=== PATIENT | female | born 1985 | race Caucasian/White ===

== ENCOUNTER → 2018-12-13 | Outpatient (REF) | payer BC ==
[2018-12-13 11:30] LABS: BASO # 0.1 10^3/uL (0.0-0.2); EOS # 0.1 10^3/uL (0.0-0.50); EOS % 1.7 % (0.0-3.0); HEMATOCRIT 42.6 % (36.0-47.0); HEMOGLOBIN 13.9 g/dl (12.0-15.5); LYMPH # 1.3 10^3/uL (1.5-4.5); LYMPH % 24.3 % (24.0-44.0); MEAN CORPUSCULAR HEMOGLOBIN 29.5 pg (27.0-33.0); MEAN CORPUSCULAR HGB CONC 32.6 g/dl (32.0-36.5); MEAN CORPUSCULAR VOLUME 90.4 fl (80.0-96.0); MONO # 0.4 10^3/uL (0.0-0.8); MONO % 8.3 % (0.0-5.0); NEUTROPHILS # 3.3 10^3/uL (1.8-7.7); NEUTROPHILS % 64.3 % (36.0-66.0); PLATELET COUNT, AUTOMATED 204 10^3/uL (150-450); RED BLOOD COUNT 4.71 10^6/uL (4.00-5.40); WHITE BLOOD COUNT 5.2 10^3/uL (4.0-10.0)
== END ==
LOC: M SFHCCLAY 08:05
PROVIDERS: ATTEND Family Medicine
DX: R53.83 Other fatigue (principal); Z86.2 Personal history of diseases of the blood and blood-forming organs and certain disorders involving the immune mechanism

== ENCOUNTER → 2019-06-21 | Outpatient (CLI) | payer BC ==
--- NOTE | 2019-06-21 12:44 | REP ---
Right wrist four views : There is no fracture or dislocation. Mineralization and joint spaces are normal. There are no calcifications or foreign bodies. Impression: Negative right wrist . Electronically Signed by Lawson Robles MD 06/21/2019 12:35 P
== END ==
LOC: M LRY 12:10
PROVIDERS: ATTEND Physician Assistant
DX: M25.531 Pain in right wrist (principal)

== ENCOUNTER → 2020-10-15 | Outpatient (REF) | payer OTHER ==
[2020-10-15 16:21] LABS: EOS # 0.1 10^3/uL (0.0-0.5); EOS % 1.7 % (0.0-3.0); HEMATOCRIT 41.3 % (36.0-47.0); HEMOGLOBIN 13.4 g/dl (12.0-15.5); LYMPH # 1.3 10^3/uL (1.5-5.0); LYMPH % 31.9 % (24.0-44.0); MEAN CORPUSCULAR HEMOGLOBIN 29.1 pg (27.0-33.0); MEAN CORPUSCULAR HGB CONC 32.4 g/dl (32.0-36.5); MEAN CORPUSCULAR VOLUME 89.6 fl (80.0-96.0); MONO # 0.4 10^3/uL (0.0-0.8); MONO % 8.6 % (2.0-8.0); NEUTROPHILS # 2.4 10^3/uL (1.5-8.5); NEUTROPHILS % 56.6 % (36.0-66.0); PLATELET COUNT, AUTOMATED 213 10^3/uL (150-450); RED BLOOD COUNT 4.61 10^6/uL (4.00-5.40); WHITE BLOOD COUNT 4.2 10^3/uL (4.0-10.0)
[2020-10-15 16:51] LABS: ALBUMIN 4.2 GM/DL (3.2-5.2); ALT/SGPT 23 U/L (12-78); BILIRUBIN,TOTAL 0.3 MG/DL (0.2-1.0); BLOOD UREA NITROGEN 11 MG/DL (7-18); CALCIUM LEVEL 8.9 MG/DL (8.5-10.1); CARBON DIOXIDE LEVEL 29 MEQ/L (21-32); CHLORIDE LEVEL 107 MEQ/L (98-107); CHOLESTEROL LEVEL 181 MG/DL (<200); CHOLESTEROL RISK RATIO 2.262 (<5); CREATININE FOR GFR 0.74 MG/DL (0.55-1.30); FREE T4 0.93 NG/DL (0.76-1.46); GLOMERULAR FILTRATION RATE > 60.0 (>60); GLUCOSE, FASTING 84 MG/DL (70-100); HDL CHOLESTEROL 80 MG/DL (>40); IRON (FE) 86 UG/DL (50-170); LDL CHOLESTEROL 86 MG/DL (<100); NON-HDL-C 101 MG/DL; PERCENT SATURATION 27.2 % (13.2-45.0); SODIUM LEVEL 140 MEQ/L (136-145); TOTAL IRON BINDING CAPACITY 316 UG/DL (250-450); TOTAL PROTEIN 7.4 GM/DL (6.4-8.2); TRIGLYCERIDES LEVEL 77 MG/DL (<150)
[2020-10-15 17:14] LABS: HEMOGLOBIN A1c 4.9 %
== END ==
LOC: M SFHCCLAY 11:11
PROVIDERS: ATTEND Family Medicine
DX: Z00.00 Encounter for general adult medical examination without abnormal findings (principal); Z82.3 Family history of stroke; Z13.220 Encounter for screening for lipoid disorders; Z83.3 Family history of diabetes mellitus; Z13.1 Encounter for screening for diabetes mellitus; R53.83 Other fatigue; L65.9 Nonscarring hair loss, unspecified

== ENCOUNTER → 2020-10-28 | Outpatient (REF) | payer OTHER | LOC: M SFHCWAGY 10:05 | PROVIDERS: ATTEND Nurse Practitioner Women's Health | DX: Z12.4 Encounter for screening for malignant neoplasm of cervix (principal) ==

== ENCOUNTER → 2020-11-14 | Outpatient (REF) | payer OTHER | LOC: M LAB REF 12:23 | PROVIDERS: ATTEND Otolaryngology | DX: L02.01 Cutaneous abscess of face (principal) ==

== ENCOUNTER → 2020-12-18 | Outpatient (REF) | payer OTHER | LOC: M SFHCCLAY 15:59 | PROVIDERS: ATTEND Family Medicine | DX: J02.9 Acute pharyngitis, unspecified (principal); R53.83 Other fatigue ==

== ENCOUNTER → 2020-12-30 | Outpatient (CLI) | payer OTHER ==
--- NOTE | 2020-12-31 04:27 | REP ---
INDICATION: DYSMENORRHEA, MENORRHAGIA WITH REGULAR CYCLE. COMPARISON: 08/10/2006 TECHNIQUE: Transabdominal pelvic ultrasound followed by transvaginal examination for better evaluation of the endometrium and adnexa with color Doppler evaluation of the ovaries. FINDINGS: Bladder is unremarkable and measures 12.8 x 8.0 x 10.8 cm. Heterogeneous anteverted uterus measures 10.8 x 5.6 x 7.1 cm. The endometrial complex measures 8 mm thickness and demonstrates nonspecific chronic calcifications up to 5 mm. Subtle early myomatous changes along the anterior margin of the uterus cannot be excluded.. Bilateral ovaries are normal in appearance and vascularity without evidence for torsion. Right ovary measures 4.2 x 2.2 x 3.3 cm; R I = 0.47. Left ovary measures 3.0 x 1.9 x 2.5 cm; R I = 0.58. No pelvic fluid or adnexal mass lesion. IMPRESSION: Questionable early vague myomatous changes to the uterus. <Electronically signed by Migue Peters > 12/31/20 0423
== END ==
LOC: EEVIPCON 12-06 15:30 → M WHC 15:29
PROVIDERS: ATTEND Nurse Practitioner Women's Health
DX: N94.6 Dysmenorrhea, unspecified (principal); N92.0 Excessive and frequent menstruation with regular cycle

== ENCOUNTER 2021-08-13 14:02 | Day surgery (SDC) | payer OTHER ==
[~2021-08-13] VITALS: Ht 154.9 cm; Wt 50.3 kg
[2021-08-13] MEDS ORDERED: ONDANSETRON 4MG/2ML VIAL As Ordered ONE (15:24)
[2021-08-13] MEDS ORDERED: LIDOCAINE 2% 100MG/5ML SDV (FOR ANES.) As Ordered ONE (15:24)
[2021-08-13] MEDS ORDERED: ROCURONIUM BROMIDE 50 MG/5 ML VIAL As Ordered ONE (15:24)
[2021-08-13] MEDS ORDERED: KETOROLAC 60MG 2ML VIAL As Ordered ONE (15:24)
[2021-08-13] MEDS ORDERED: fentaNYL 100 MCG/2 ML INJECTION (J3010) As Ordered ONE (15:24)
[2021-08-13] MEDS ORDERED: propofoL 200 MG/20 ML VIAL As Ordered ONE (15:24)
[2021-08-13] MEDS ORDERED: dexameTHASONE 4 MG/ML 1ML VIAL (J1100 PER 1MG) As Ordered ONE (15:24)
[2021-08-13] MEDS ORDERED: SUGAMMADEX SODIUM 500 MG/5 ML VIAL (BRIDION) As Ordered ONE (15:24)
[2021-08-13] MEDS ORDERED: ACETAMINOPHEN 1000MG 100ML IV BTL (OFIRMEV) (J0131 PER 10MG) As Ordered ONE (15:24)
[2021-08-13] MEDS ORDERED: MIDAZOLAM INJ 2MG/2ML VIAL (J2250 PER 1MG) As Ordered ONE (15:24)
[2021-08-13] MEDS ORDERED: LIDOCAINE 5% OINT 30GM TUBE As Ordered ONE (16:02)
[2021-08-13] MEDS ORDERED: ceFAZolin 2 GM/D5W 50 ML IV BAG (J0690 PER 500MG) As Ordered ONE (16:23)
[2021-08-13] MEDS ORDERED: BUPIVACAINE/EPIN 0.25% 30 ML VIAL As Ordered ONE (16:26)
[2021-08-13] MEDS ORDERED: fentaNYL 100 MCG/2 ML INJECTION (J3010) IV PRN (18:10)
[2021-08-13] MEDS ORDERED: oxyCODONE 5MG TAB PO PRN (18:10)
[2021-08-13] MEDS ORDERED: METOCLOPRAMIDE INJ 10MG/2ML VIAL (J2765 PER 1) IV PRN (18:10)
[2021-08-13] MEDS ORDERED: LR 1,000 ML IV SCH (18:10)
[2021-08-13] MEDS ORDERED: ONDANSETRON 4MG/2ML VIAL IV PRN (18:10)
[2021-08-13 18:45] VITALS: BP 131/89
== END 2021-08-13 18:51 | disposition home or self-care (01) ==
LOC: M SDC 14:02
PROVIDERS: ATTEND Orthopaedic Surgery Sports Medicine
DX: S52.021A Displaced fracture of olecranon process without intraarticular extension of right ulna, initial encounter for closed fracture (principal); W00.0XXA Fall on same level due to ice and snow, initial encounter; Y92.89 Other specified places as the place of occurrence of the external cause; Y93.89 Activity, other specified; Y99.8 Other external cause status; M41.9 Scoliosis, unspecified
CPT/HCPCS: 24685; 76000; J0131; J0690; J1100; J1885; J2250; J2405; J3010; U0002

== ENCOUNTER → 2021-08-26 | Outpatient (CLI) | payer OTHER, SELFPAY | LOC: M SOG 11:30 | PROVIDERS: ATTEND Orthopaedic Surgery Hand Surgery | DX: S52.021A Displaced fracture of olecranon process without intraarticular extension of right ulna, initial encounter for closed fracture (principal); X58.XXXA Exposure to other specified factors, initial encounter; Y92.89 Other specified places as the place of occurrence of the external cause ==

== ENCOUNTER → 2022-02-11 | Outpatient (CLI) | payer OTHER | LOC: M SOG 08:11 | PROVIDERS: ATTEND Orthopaedic Surgery | DX: M25.521 Pain in right elbow (principal) ==

== ENCOUNTER → 2022-02-23 | Outpatient (CLI) | payer BC | LOC: M CLY 15:36 | PROVIDERS: ATTEND Physician Assistant | DX: M50.321 Other cervical disc degeneration at C4-C5 level (principal); M50.322 Other cervical disc degeneration at C5-C6 level; M54.6 Pain in thoracic spine ==

== ENCOUNTER → 2022-04-22 | Outpatient (CLI) | payer OTHER | LOC: M PLAIMG 06:49 | PROVIDERS: ATTEND Orthopaedic Surgery | DX: M77.9 Enthesopathy, unspecified (principal) ==

== ENCOUNTER → 2023-05-24 | Outpatient (REF) | payer OTHER, BC ==
[2023-05-24 17:11] LABS: BASO % 0.9 % (0.0-1.0); EOS # 0.1 10^3/uL (0.0-0.5); EOS % 2.2 % (0.0-3.0); HEMATOCRIT 42.7 % (36.0-47.0); HEMOGLOBIN 14.2 g/dl (12.0-15.5); LYMPH # 1.3 10^3/uL (1.5-5.0); LYMPH % 29.8 % (24.0-44.0); MEAN CORPUSCULAR HEMOGLOBIN 29.6 pg (27.0-33.0); MEAN CORPUSCULAR HGB CONC 33.3 g/dl (32.0-36.5); MEAN CORPUSCULAR VOLUME 89.1 fl (80.0-96.0); MONO # 0.4 10^3/uL (0.0-0.8); MONO % 7.8 % (2.0-8.0); NEUTROPHILS # 2.6 10^3/uL (1.5-8.5); NEUTROPHILS % 58.9 % (36.0-66.0); PLATELET COUNT, AUTOMATED 251 10^3/uL (150-450); RED BLOOD COUNT 4.79 10^6/uL (4.00-5.40); WHITE BLOOD COUNT 4.5 10^3/uL (4.0-10.0)
[2023-05-24 17:17] LABS: IRON (FE) 124 UG/DL (50-170); PERCENT SATURATION 31.9 % (13.2-45.0); TOTAL IRON BINDING CAPACITY 389 UG/DL (250-425)
[2023-05-24 17:18] LABS: ALBUMIN 3.8 G/DL (3.2-5.2); ALKALINE PHOSPHATASE 42 U/L (46-116); ALT/SGPT 17 U/L (7.0-40); AST/SGOT 14 U/L (<34); BILIRUBIN,TOTAL 0.6 MG/DL (0.3-1.2); BLOOD UREA NITROGEN 16 MG/DL (9-23); CALCIUM LEVEL 8.9 MG/DL (8.5-10.1); CARBON DIOXIDE LEVEL 28 MMOL/L (20-31); CHLORIDE LEVEL 109 MMOL/L (98-107); CHOLESTEROL LEVEL 158 MG/DL (<200); GLOMERULAR FILTRATION RATE > 60.0 (>60); GLUCOSE, FASTING 87 MG/DL (60-100); HDL CHOLESTEROL 75.2 MG/DL (>40); LDL CHOLESTEROL 67.4 MG/DL (<100); NON-HDL-C 82.8 MG/DL; POTASSIUM SERUM 4.5 MMOL/L (3.5-5.1); SODIUM LEVEL 141 MMOL/L (136-145); TOTAL PROTEIN 6.8 G/DL (5.7-8.2); TRIGLYCERIDES LEVEL 77 MG/DL (<150)
[2023-05-24 17:19] LABS: FREE T4 0.92 NG/DL (0.89-1.76); THYROID STIMULATING HORMONE 1.161 uIU/ML (0.55-4.78)
[2023-05-24 17:20] LABS: FERRITIN 28.2 NG/ML (7.3-270.7)
== END ==
LOC: M SFHCCLAY 09:46
PROVIDERS: ATTEND Nurse Practitioner Family
DX: Z13.220 Encounter for screening for lipoid disorders (principal); F41.9 Anxiety disorder, unspecified; D50.9 Iron deficiency anemia, unspecified

== ENCOUNTER → 2023-06-22 | Outpatient (REF) | payer BC, OTHER | LOC: M SFHCCLAY 14:39 | PROVIDERS: ATTEND Nurse Practitioner Family | DX: R50.9 Fever, unspecified (principal); R19.7 Diarrhea, unspecified ==

== ENCOUNTER → 2023-10-14 | Outpatient (REF) | payer OTHER ==
[2023-10-14 11:43] LABS: BLOOD UREA NITROGEN 13 MG/DL (9-23); CALCIUM LEVEL 8.8 MG/DL (8.5-10.1); CARBON DIOXIDE LEVEL 28 MMOL/L (20-31); CHLORIDE LEVEL 107 MMOL/L (98-107); CREATININE FOR GFR 0.67 MG/DL (0.55-1.30); GLOMERULAR FILTRATION RATE > 60.0 (>58); GLUCOSE, FASTING 97 MG/DL (60-100); POTASSIUM SERUM 4.7 MMOL/L (3.5-5.1); SODIUM LEVEL 141 MMOL/L (136-145)
== END ==
LOC: M SFHCCLAY 08:42
PROVIDERS: ATTEND Nurse Practitioner Family
DX: R19.7 Diarrhea, unspecified (principal)

== ENCOUNTER → 2023-10-15 | Outpatient (REF) | payer OTHER | LOC: M SFHCCLAY 11:23 | PROVIDERS: ATTEND Nurse Practitioner Family | DX: R19.7 Diarrhea, unspecified (principal) ==

== ENCOUNTER → 2024-01-11 | Outpatient (CLI) | payer OTHER | LOC: M CLY 07:41 | PROVIDERS: ATTEND Nurse Practitioner Family | DX: M54.2 Cervicalgia (principal) ==

== ENCOUNTER → 2024-03-16 | Outpatient (CLI) | payer OTHER | LOC: M WHC 15:51 | PROVIDERS: ATTEND Nurse Practitioner Family | DX: Z12.31 Encounter for screening mammogram for malignant neoplasm of breast (principal) ==

== ENCOUNTER → 2024-03-30 | Outpatient (CLI) | payer OTHER ==
[~2024-03-30] MED LIST: GABA-1171 PO; LEXA1TAB2 PO; MELO15TA28 PO; TIZA10TA PO
== END ==
LOC: M WHC 09:59
PROVIDERS: ATTEND Nurse Practitioner Family
DX: R92.8 Other abnormal and inconclusive findings on diagnostic imaging of breast (principal)
CPT/HCPCS: 77065; G0279

== ENCOUNTER → 2024-04-14 | Day surgery (SDC) | payer OTHER ==
[~2024-04-14] VITALS: Ht 154.9 cm; Wt 57.2 kg
[~2024-04-14] MED LIST changes: +NS 1,000 ML IV ONE
== END | disposition home or self-care (01) ==
LOC: M OPP 06:59
PROVIDERS: ATTEND Internal Medicine Gastroenterology
DX: R19.4 Change in bowel habit (principal); Z53.8 Procedure and treatment not carried out for other reasons

== ENCOUNTER → 2024-04-25 | Outpatient (REF) | payer OTHER ==
[~2024-04-25] MED LIST changes: -NS 1,000 ML IV ONE
== END ==
LOC: M SFHCCLAY 10:54
PROVIDERS: ATTEND Nurse Practitioner Family
DX: Z01.419 Encounter for gynecological examination (general) (routine) without abnormal findings (principal)

== ENCOUNTER → 2024-04-25 | Outpatient (CLI) | payer OTHER | LOC: M CLY 15:45 | PROVIDERS: ATTEND Nurse Practitioner Family | DX: M25.512 Pain in left shoulder (principal) ==

== ENCOUNTER → 2024-12-01 | Outpatient (REF) | payer OTHER | LOC: M SFHCCLAY 17:05 | PROVIDERS: ATTEND Nurse Practitioner Family | DX: J06.9 Acute upper respiratory infection, unspecified (principal) ==